=== PATIENT | male | born 1985 | race American Indian/Alaskan Native ===

== ENCOUNTER 2021-01-02 11:58 | Emergency (ER) | payer BC ==
--- NOTE | 2021-01-02 14:10 | Emergency Department Report ---
ED General Adult HPI - General Chief complaint: High BP Stated complaint: HIGH BP PUI?: No Time Seen by Provider: 01/02/21 13:34 Source: patient Mode of arrival: Ambulatory Limitations: No Limitations - History of Present Illness Initial comments: 35-year-old male was sent to the ER from the dentist office at that he noticed that his blood pressure was elevated. Patient states that he went into the dentist this morning for routine cleaning, and when he checked his blood pressure and he noticed that it was elevated. Patient blood pressure was checked 3 times, the first time was 159/106, second time was 209/111, and third was 166/115. Patient denies any known history of high blood pressure or having issues with his blood pressure in the past. Patient reports a slight headache that he had this morning and some mild tingling in his hands but otherwise denies any additional symptoms. MD Complaint: elevated blood pressure -: This morning Severity scale (0 -10): 6 - Related Data Previous Rx's Medication Instructions Recorded Last Taken Type Amlodipine Besylate [Norvasc] 5 mg PO DAILY #30 tablet 01/02/21 Unknown Rx ED Review of Systems ROS: Stated complaint: HIGH BP Other details as noted in HPI Comment: All other systems reviewed and negative Constitutional: denies: chills, diaphoresis, fever, malaise, weakness Eyes: denies: eye pain, eye discharge, vision change ENT: denies: ear pain, throat pain Respiratory: denies: cough, shortness of breath, SOB with exertion, SOB at rest, wheezing Cardiovascular: denies: chest pain, palpitations, dyspnea on exertion, orthopnea, edema, syncope, paroxysmal nocturnal dyspnea Endocrine: no symptoms reported Gastrointestinal: denies: abdominal pain, nausea, diarrhea Genitourinary: denies: urgency, dysuria, frequency, hematuria, discharge, testicular pain, testicular mass Musculoskeletal: denies: back pain, joint swelling, arthralgia Skin: denies: rash, lesions Neurological: headache, paresthesias. denies: weakness, numbness, confusion, abnormal gait, vertigo Psychiatric: denies: anxiety, depression, auditory hallucinations, visual hallucinations, homicidal thoughts, suicidal thoughts Hematological/Lymphatic: denies: easy bleeding, easy bruising, swollen glands ED Past Medical Hx - Past Medical History Previous Medical History?: No Additional medical history: denies - Surgical History Past Surgical History?: No - Medications Home Medications: Home Medications Medication Instructions Recorded Confirmed Last Taken Type Amlodipine Besylate [Norvasc] 5 mg PO DAILY #30 tablet 01/02/21 Unknown Rx ED Physical Exam - General Limitations: No Limitations General appearance: alert, in no apparent distress - Head Head exam: Present: atraumatic, normocephalic - Eye Eye exam: Present: normal appearance, PERRL, EOMI Pupils: Present: normal accommodation - ENT ENT exam: Present: normal exam, mucous membranes moist, TM's normal bilaterally - Neck Neck exam: Present: normal inspection, full ROM - Respiratory Respiratory exam: Present: normal lung sounds bilaterally. Absent: respiratory distress, wheezes, rales, rhonchi - Cardiovascular Cardiovascular Exam: Present: regular rate, normal rhythm, normal heart sounds - Back Exam Back exam: Present: normal inspection - Neurological Exam Neurological exam: Present: alert, oriented X3, CN II-XII intact, normal gait. Absent: motor sensory deficit - Psychiatric Psychiatric exam: Present: normal affect, normal mood - Skin Skin exam: Present: intact ED Course Vital Signs 01/02/21 01/02/21 12:49 14:21 Temperature 97.9 F Pulse Rate 79 Respiratory 20 Rate Blood Pressure 153/112 151/109 [Right] O2 Sat by Pulse 98 Oximetry ED Medical Decision Making - Lab Data Result diagrams: 01/02/21 14:35 01/02/21 14:35 - Medical Decision Making 35-year-old male was sent to the ER from the dentist office at that he noticed that his blood pressure was elevated. Patient states that he went into the dentist this morning for routine cleaning, and when he checked his blood pressure and he noticed that it was elevated. Patient blood pressure was checked 3 times, the first time was 159/106, second time was 209/111, and third was 166/115. Patient denies any known history of high blood pressure or having issues with his blood pressure in the past. Patient reports a slight headache that he had this morning and some mild tingling in his hands but otherwise denies any additional symptoms. 1608: Patient is well-appearing, nontoxic and not in any acute distress. He is awake alert and oriented x3, he is neurologically intact with a normal gait. He appears hydrated. Labs show nothing acute. Patient blood pressure was elevated during stay, but his remaining vitals have been stable. Discussed lab results with patient. Informed him that he will be started on low-dose Norvasc to take daily but most importantly he needs to follow-up with primary care doctor for continued monitoring of his blood pressure. Patient patient does not have any concerning signs at this time for TIA, CVA, intracranial hemorrhage acute coronary syndrome, unstable angina, emergent condition warranting any additional work-up, admission or specialist consult at this time. Patient expressed understanding for instructions and agree with plan. Patient stable at time of discharge. Critical care attestation.: If time is entered above; I have spent that time in minutes in the direct care of this critically ill patient, excluding procedure time. ED Disposition Clinical Impression: Hypertension Disposition: 01 HOME / SELF CARE / HOMELESS Is pt being admited?: No Does the pt Need Aspirin: No Condition: Stable Instructions: Hypertension, Adult, [id number], Managing Your Hypertension, Hypertension (ED) Additional Instructions: I recommend that you start the norvasc today and take it daily as prescribed. It is important that you follow-up regularly with a primary care doctor for continued monitoring of your blood pressure. A primary care doctor will be provided to you in your discharge instructions if you do not have one. Return to the ER if your symptoms changes or worsens in any way. Prescriptions: Amlodipine Besylate [Norvasc] 5 mg PO DAILY #30 tablet Referrals: [facility] [Provider Group] - 3-5 Days [facility] [Provider Group] - 3-5 Days NEDRA KRISHNAMURTHY MD [Staff Physician] - 3-5 Days Forms: Work/School Release Form(ED) Time of Disposition: 15:41
[2021-01-02 14:22] VITALS: BP 151/109
[2021-01-02 15:01] LABS: Basophils # (Auto) 0.1 K/mm3 (0.0-0.1); Basophils % (Auto) 1.3 % (0.0-1.8); Eosinophils # (Auto) 0.1 K/mm3 (0.0-0.4); Eosinophils % (Auto) 2.6 % (0.0-4.3); Hematocrit 47.4 % (35.5-45.6); Hemoglobin 15.8 gm/dl (11.8-15.2); Lymphocytes # (Auto) 2.6 K/mm3 (1.2-5.4); Lymphocytes % (Auto) 48.4 % (13.4-35.0); Mean Corpuscular HGB Conc 33 % (32-34); Mean Corpuscular Volume 86 fl (84-94); Monocytes # (Auto) 0.4 K/mm3 (0.0-0.8); Monocytes % (Auto) 7.9 % (0.0-7.3); Platelet Count 262 K/mm3 (140-440); Red Blood Count 5.52 M/mm3 (3.65-5.03); Red Cell Distribution Width 14.8 % (13.2-15.2)
[2021-01-02 15:24] LABS: Alanine Aminotransferase 61 units/L (7-56); Albumin 4.5 g/dL (3.9-5); Blood Urea Nitrogen 10 mg/dL (9-20); Calcium 9.6 mg/dL (8.4-10.2); Hemolysis Index 14
[2021-01-02 15:25] LABS: BUN/Creatinine Ratio 13
== END 2021-01-02 16:00 | disposition home or self-care (01) ==
LOC: ED 11:58
DX: I10 Essential (primary) hypertension (principal)
CPT/HCPCS: 36415; 80053; 85025; 99283